=== PATIENT | female | born 1970 | race Caucasian/White ===

== ENCOUNTER 2024-03-19 15:07 | Emergency (ER) | payer MEDICARE, SELFPAY ==
[2024-03-19 15:10] VITALS: BP 109/70; PULSE 82; RESP 16; TEMP 35.7; O2SAT 97; BMI 42.3
[2024-03-19 15:15] VITALS: BP 109/70; PULSE 82; RESP 16; TEMP 35.7; O2SAT 97
--- NOTE | 2024-03-19 16:09 | EX.ED.DYSGE1 ---
HPI History of Present Illness Chief Complaint: Wound Check [facility] Medical History (Updated 03/19/24 @ 16:55 by Lexy Evans) Radha-Danlos syndrome Allergy/AdvReac Type Severity Reaction Status Date / Time fentanyl Allergy Severe Anaphylaxis Verified 03/19/24 15:10 adhesive Allergy Intermediate Rash Verified 03/19/24 15:10 Penicillins Allergy Intermediate Shortness Verified 03/19/24 15:10 of breath Sulfa (Sulfonamide Allergy Intermediate Shortness Verified 03/19/24 15:10 Antibiotics) of breath Social History Smoking Status: Unknown if ever smoked EXAM Physical Exam Const Vital Signs: 03/19/24 15:10 03/19/24 15:15 03/19/24 16:15 Temperature 96.3 F L 96.3 F L 98.2 F Temperature Source Temporal Temporal Temporal Pulse Rate 82 82 77 Respiratory Rate 16 16 16 Blood Pressure 109/70 109/70 111/68 Blood Pressure Mean 83 83 82 Pulse Ox 97 97 92 Oxygen Delivery Method Room Air Room Air Room Air 03/19/24 17:00 Temperature 97.9 F Temperature Source Oral Pulse Rate 70 Respiratory Rate 16 Blood Pressure 125/88 H Blood Pressure Mean 100 Pulse Ox 100 Oxygen Delivery Method Room Air MDM MDM MDM Narrative Medical decision making narrative: HISTORY OF PRESENT ILLNESS: 53-year-old female presents with concern for wound infection. She notes that she had an elective double mastectomy on 01/24 [id number]. 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 Notes swelling and leaking on the left side. Notes a knot on the left side. Notes she recently started clindamycin 3 days ago. 2 days ago she noted green discharge and pain in her left arm and left breast. States her surgery was done in [place]. States she would not want to have surgical invention here in [place]. She does think she may need IV antibiotics. She denies any fever, vomiting. She know she is on day 3 of 14 of clindamycin. REVIEW OF SYSTEMS: Pertinent positives: Left breast pain Pertinent negatives: Fever, vomiting PHYSICAL EXAM: Nursing triage notes reviewed, Vital signs reviewed Constitutional: please see mdm HENT: MMM Eyes: Pupils equal round and reactive to light, Extraocular muscles intact Neck: No stridor, no JVD, full neck ROM Lungs: Clear to auscultation, No wheezing or rales. No increased work of breathing, no conversational dyspnea, no accessory muscle use, no nasal flaring. No respiratory distress noted Heart: Regular rate and rhythm, No murmurs, No rubs and No gallops, 2+ distal pulses (radial, femoral, posterior tibial) in all extremities Abdomen: Soft, there is no tenderness, rigidity, rebound or guarding, no obvious peritoneal signs, no palpable pulsatile abdominal masses, no auscultated abdominal bruit : No CVAT Extremities: No edema Neuro: No focal neurological deficits, cranial nerves II through XII intact, 5/5 strength in all extremities. Intact sensation to light touch in all extremities, 2+ reflexes bilateral patella tendons. Normal gait. No ataxia. Skin: Bilateral mastectomy site inspected. Right is clean dry intact with no purulence erythema or tenderness to palpation. Left wound is warm, there is serosanguineous to purulent drainage, there is no appreciable fluctuance induration crepitus or bullae MEDICAL DECISION MAKING: Chief Complaint: Left breast pain External records reviewed: No records in [facility] Factors affecting care: n status post double mastectomy, Radha-Danlos [facility] Narrative: Patient was initially hemodynamically stable, afebrile and nontoxic-appearing. Exam with concern for superficial cellulitis versus deeper breast abscess I considered the following differential diagnosis: Breast abscess, wound infection, I obtained labs to rule out signs of systemic inflammation, endorgan hypoperfusion. I obtained a CT scan of the chest to further review if there is a large appreciable abscess. ALL IMAGES (IF OBTAINED) HAVE BEEN PERSONALLY REVIEWED AND INTERPRETED BY MYSELF. CT scan of chest shows no obvious left breast abscess CBC without leukocytosis to suggest active inflammation, no anemia or thrombocytopenia BMP without evidence of significant electrolyte abnormalities, no anion gap, no acute kidney injury. Lactate is wnl indicating no end-organ hypoperfusion and/or hypoxia. Given the patient had no signs of fever, was nontoxic-appearing, no signs of systemic inflammation or endorgan perfusion with a negative lactate did not feel she need to be admitted. She got a dose of IV vancomycin here she is appropriate to continue clindamycin as an outpatient. Patient states she will follow-up with her surgeon in the next 4 days. I think this is appropriate. Gave strict return precautions. The patient and/or family, caregivers express understanding. The patient and/or family, caregivers agrees with the plan. Shared decision making: I will have a discussion with the patient and or visitors regarding risk/benefits of further testing or admission. They will be made aware of of the risk/benefits inherent in this decision they will be given the opportunity to voice understanding. Total critical care time today provided was at least 0 minutes. This excludes separately billable procedures. Critical care time (if documented) is secondary to the patient having high probability of clinically significant/life threatening deterioration in the patient's condition which required my urgent intervention. Impression: 1. History of double mastectomy 2. Postop infection 3. Breast cellulitis Dispo: discharge This note was generated with [employer] dictation software. It may contain incorrect words, spelling, and punctuation that were not noted in review of the chart prior to signing. Lab Data Labs: Laboratory Results - last 24 hr 03/19/24 16:50 WBC 6.7 RBC 4.45 Hgb 12.4 Hct 39.4 MCV 88.5 MCH 27.9 MCHC 31.5 L RDW Std Deviation 43.3 RDW Coeff of Tino 13.3 Plt Count 279 MPV 8.5 Sodium 139 Potassium 4.5 Chloride 108 H Carbon Dioxide 28.0 Anion Gap 3 L BUN 19 H Creatinine 0.93 Estim Creat Clear Calc 106.99 Est GFR (MDRD) Af Amer 82 Est GFR (MDRD) Non-Af 68 BUN/Creatinine Ratio 20.5 H Glucose 104 Lactic Acid 1.2 Calcium 9.1 Radiography Diagnostic Testing: Clinical Impression(s) from Imaging Studies Chest CT 03/19/24 16:43 IMPRESSION: Bilateral tissue expanders surrounded by fluid especially laterally. Inflammatory fluid not excluded but no specific focal fluid collection/walled off abscess. Induration around both tissue expanders could be cellulitis. Mild diffuse hazy density throughout both lungs. Electronically Signed: Roverto Contreras MD at 17:37 EDT , Discharge Plan Triage Chief Complaint: Wound Check ED Provider: Matheus Durant Dx/Rx/DC Orders Primary Care Provider: JOSE CLAYTON Referrals: JOSE CLAYTON [Other] Print Language: Korean
[2024-03-19 16:15] VITALS: BP 111/68; PULSE 77; RESP 16; TEMP 36.8; O2SAT 92
--- NOTE | 2024-03-19 16:43 | CT_ITS ---
INDICATION: left breast redness s/p mastectomy r/o abscess EXAMINATION: CT CHEST WITHOUT CONTRAST - CT Chest W/O Contrast Injection TECHNIQUE: Helically acquired images were obtained of the chest. A radiation dose optimization technique was used for this scan. IV Contrast dosage and agent: None. COMPARISON: None. FINDINGS: Bilateral mastectomies are seen with bilateral tissue expanders that are filled with air. In both cases, fluid density is seen along the lateral margins of the tissue expanders, worse on the right. Findings may simply be postsurgical but inflammatory fluid collections are not excluded although walled off abscesses are not clearly seen. There is nonspecific soft tissue induration around both tissue expanders which could be cellulitis. LUNGS, PLEURA AND LARGE AIRWAYS: Normal lung volumes. Heterogeneous hazy density throughout both lungs, most suggestive of pneumonitis and/or mild pulmonary edema. No masses. No focal infiltrates. No pleural effusion or thickening. No pneumothorax. THYROID: No thyroid lesions. HEART AND PERICARDIUM: Heart size is normal. No pericardial effusion. CORONARY ARTERIES: Coronary artery calcification is seen. VESSELS: Thoracic aorta is not dilated. MEDIASTINUM AND MAGDA: No mediastinal or hilar adenopathy. Esophagus is unremarkable. Small hiatal hernia. UPPER ABDOMEN: No acute pathology. Previous gastric sleeve surgery. BONES: No suspicious lytic or blastic abnormality. Degenerative changes and chronic wedge deformities. CT/Chest without Contrast IMPRESSION: Bilateral tissue expanders surrounded by fluid especially laterally. Inflammatory fluid not excluded but no specific focal fluid collection/walled off abscess. Induration around both tissue expanders could be cellulitis. Mild diffuse hazy density throughout both lungs. Electronically Signed: Roverto Contreras MD at 17:37 EDT ,
[2024-03-19] MEDS: 0.9% Normal Saline (1000mL) 1,000 ML 999 ML IV (16:51)
[2024-03-19 16:58] LABS: Hematocrit 39.4 % (37-47); Hemoglobin 12.4 g/dL (12.0-15.0); Mean Corp Hgb Conc 31.5 g/dL (32-36); Mean Corpuscular Hgb 27.9 pg (27.0-32.0); Mean Corpuscular Volume 88.5 fL (81-99); Mean Platelet Vol. 8.5 fl (6.2-12.0); Platelet Count 279 K/mm3 (150-450); RBC Distribution Width CV 13.3 % (11.6-14.6); RBC Distribution Width SD 43.3 fl (35.1-43.9); Red Blood Count 4.45 M/mm3 (4.2-5.4); White Blood Count 6.7 K/mm3 (4.4-11.0)
[2024-03-19 17:00] VITALS: BP 125/88; PULSE 70; RESP 16; TEMP 36.6; O2SAT 100
[2024-03-19 17:29] LABS: Anion Gap 3 (5-15); BUN 19 mg/dL (7-18); BUN/Creat Ratio 20.5 RATIO (10-20); Calcium,Total 9.1 mg/dL (8.5-10.1); Chloride 108 mmol/L (98-107); Creatinine, Serum 0.93 mg/dL (0.55-1.02); EST Glomerular Filtration Rate 68 mL/min (>60); Est Glom Filt Rate - Afr Amer 82 mL/min (>60); Estimated Creatinine Clearance 106.99 ml/min; Glucose 104 mg/dL (74-106); Potassium 4.5 mmol/L (3.5-5.1); Sodium Level 139 mmol/L (136-145)
[2024-03-19] MEDS: Vancomycin HCl 2,000 MG in 0.9% Normal Saline (500mL Bag) 500 ML 250 MG IV (17:29)
[2024-03-19] MEDS: Ketorolac 15 MG/ML Vial IV (17:29)
[2024-03-19 17:34] LABS: Lactic Acid 1.2 mmol/L (0.4-1.9)
[2024-03-19 19:00] VITALS: BP 110/76; PULSE 77; RESP 16; O2SAT 98
[2024-03-19 19:50] VITALS: BP 116/73; PULSE 72; RESP 15; TEMP 36.3; O2SAT 96
== END 2024-03-19 20:02 | disposition home or self-care (01) ==
PROVIDERS: Emergency Provider Emergency Medicine; Visit Provider Emergency Medicine
DX: T81.40XA Infection following a procedure, unspecified, initial encounter (principal); N61.0 Mastitis without abscess; Q79.60 Ehlers-Danlos syndrome, unspecified; X58.XXXA Exposure to other specified factors, initial encounter
CPT/HCPCS: 71250; 80048; 83605; 85027; 99283; J7030; J7040; A4216